=== PATIENT | male | born 1990 | race Caucasian/White ===

== ENCOUNTER 2021-12-13 12:12 | Emergency (ER) | payer BC, OTHER ==
[~2021-12-13 12:12] MED LIST: CEPHALEXIN500 MG PO; FLOMAX0.4 MG PO; NORCO 7.5-3251 EACH PO; ONDANSETRON ODT4 MG PO
== END 2021-12-13 14:19 | disposition home or self-care (01) ==
LOC: ER1 12:12
DX: S40.011A Contusion of right shoulder, initial encounter (principal); S00.01XA Abrasion of scalp, initial encounter; V86.95XA Unspecified occupant of 3- or 4- wheeled all-terrain vehicle (ATV) injured in nontraffic accident, initial encounter
CPT/HCPCS: 73030; 99283